=== PATIENT | female | born 1980 | race Caucasian/White ===

== ENCOUNTER → 2017-07-31 | Outpatient (CLI) | payer OTHER ==
[2017-07-31 20:13] LABS: ANA w/Reflex to Titer NEGATIVE (NEGATIVE); Cyclic Citrull Pep IgG Unit <0.5 U/mL; Cyclic Citrullinated Pep IgG NEGATIVE (NEGATIVE); RNP AB Interpretation NEGATIVE (NEGATIVE); Scleroderma SC-70 Ab Interp NEGATIVE (NEGATIVE)
== END | disposition home or self-care (01) ==
LOC: LABWHC1 13:20
PROVIDERS: ATTEND Psychiatry & Neurology Pain Medicine
DX: M25.50 Pain in unspecified joint (principal)
CPT/HCPCS: 36415; 83516; 86038; 86200; 86225; 86235

== ENCOUNTER → 2018-10-04 | Outpatient (CLI) | payer OTHER ==
[2018-10-04 18:17] LABS: Iron Saturation 15.74 (12.00-45.00)
[2018-10-04 18:24] LABS: Vitamin D 25 Hydroxy 26.6 ng/mL (30.0-100.0)
[2018-10-04 18:25] LABS: Folate, Serum 3.1 ng/mL
[2018-10-04 18:26] LABS: Albumin 4.6 g/dL (3.80-4.90); Albumin/Globulin Ratio 1.84 (1.20-2.10); Anion Gap 7.7 mmol/L (4.00-12.00); C Reactive Protein 0.8 mg/dL (0.0-0.8); Calcium 9.1 mg/dL (8.7-10.3); Carbon Dioxide 28.3 mmol/L (21.6-31.8); Globulin 2.5 g/dL (1.6-3.3); Potassium 3.7 mmol/L (3.5-5.5); Total Bilirubin 0.2 mg/dL (0.3-1.2); Total Protein 7.1 g/dL (6.2-8.2)
[2018-10-04 18:34] LABS: T4, Free (Free Thyroxine) 1.1 ng/dL (0.80-1.80)
[2018-10-08 06:52] LABS: Vitamin B1 30 ug/L (38-122)
[2018-10-08 13:27] LABS: Nicotinuric Acid None Detected
== END | disposition home or self-care (01) ==
LOC: LABWHC1 10:54
PROVIDERS: ATTEND Psychiatry & Neurology Neurology
DX: E55.9 Vitamin D deficiency, unspecified (principal); R53.83 Other fatigue; Z51.81 Encounter for therapeutic drug level monitoring
CPT/HCPCS: 36415; 80053; 82306; 82550; 82607; 82728; 82746; 83540; 83550; 84207; 84425; 84439; 84443; 84466; 84481; 84591; 85652; 86140